=== PATIENT | female | born 1965 | race American Indian/Alaskan Native ===

== ENCOUNTER 2020-10-17 15:17 | Outpatient (CLI) | payer OTHER ==
--- NOTE | 2020-10-17 17:09 | XRay Report ---
Right knee 2 views INDICATION: Pain FINDINGS: There is tricompartmental degenerative osteoarthrosis most significant in the medial compar tment and patellofemoral joint with significant joint space narrowing and osteophytes. Pelvis and left hip 2 views INDICATION: Pain FINDINGS: Degenerative changes seen in bilateral hips left greater than right. Small osteophyte femor al head neck junction and left superior acetabulum. No acute fracture. Sacrum appears normal. Cervical spine series INDICATION: Neck pain FINDINGS: Discogenic degenerative changes seen throughout the cervical spine with endplate changes an d anterior posterior disc osteophytes throughout. Cervicothoracic junction visualized appears normal. IMPRESSION: Degenerative change of the cervical spine. Signer Name: Solo Tyson MD Signed: 10/17/2020 5:04 PM Workstation Name: [id number]
== END 2020-10-17 15:18 | disposition home or self-care (01) ==
LOC: XRAY 15:17
PROVIDERS: ATTEND Internal Medicine
DX: M17.11 Unilateral primary osteoarthritis, right knee (principal); M25.761 Osteophyte, right knee; M16.0 Bilateral primary osteoarthritis of hip; M25.752 Osteophyte, left hip; M47.812 Spondylosis without myelopathy or radiculopathy, cervical region; M25.78 Osteophyte, vertebrae
CPT/HCPCS: 72040